=== PATIENT | male | born 1990 | race Caucasian/White ===

== ENCOUNTER 2018-03-15 11:57 | Emergency (ER) | payer SELFPAY ==
[2018-03-15] MEDS: DIPHTH/TET/ACEL PERTUSS (ADULT) 0.5 ML VIAL IM* (12:45)
[2018-03-15] MEDS: LIDOCAINE 1% (MDV) 20 ML INJ SC (12:57)
[2018-03-15] MEDS: CEFAZOLIN 1 GM INJ IM (13:09)
== END 2018-03-15 14:55 | disposition home or self-care (01) ==
LOC: FTE 11:57
DX: S61.216A Laceration without foreign body of right little finger without damage to nail, initial encounter (principal); W29.0XXA Contact with powered kitchen appliance, initial encounter; Y92.89 Other specified places as the place of occurrence of the external cause; Z23 Encounter for immunization
CPT/HCPCS: 12002; 73140; 90471; 90715; 96372; 99284-25

== ENCOUNTER → 2018-04-07 | Day surgery (SDC) | payer OTHER ==
[~2018-04-07] MED LIST: ALBUTEROL 0.083% (NEB) 2.5 MG/3 ML AMP HHN; CEFAZOLIN 1 GM INJ; DEXAMETHASONE 4 MG/ML 1 ML INJ; DIPHENHYDRAMINE 50 MG INJ IV; EPHEDrine SULFATE 50 MG/5 ML SYG IV; FENTAnyl 50 MCG/ML VIAL IV; HYDROCODONE/APAP (5/325) TAB PO; HYDROmorphONE 1 MG/5 ML IV SYRINGE IV; IBUPROFEN 600 MG TAB PO; KETOROLAC 30 MG INJ; KETOROLAC 30 MG INJ IV; LABETALOL HCL 20MG INJ; LABETALOL HCL 20MG INJ IV; LACTATED RINGER'S 1,000 ML IV; LIDOCAINE 2% (SDV) 5 ML INJ; MEPERIDINE 25 MG INJ IV; METOCLOPRAMIDE 10 MG INJ IV; NEOMYC/POLYMYX/BACIT 30 GM OINT; ONDANSETRON 4 MG INJ; ONDANSETRON 4 MG INJ IV; OXYCODONE/ACETAMINOPHEN (5/325) TAB PO; PROPOFOL 20 ML; ROCURONIUM 50 MG INJ; SUGAMMADEX SODIUM 200 MG/2 ML VIAL IV; hydrALAzine 20 MG INJ IV; morphine 2 MG INJ IV
[2018-04-07] MEDS: CEFAZOLIN 2 GM/50 ML (PMX) 50 ML IVPB (18:15)
[2018-04-07] MEDS: ROPIVACAINE 0.5 % 30 ML VIAL (18:32)
== END | disposition home or self-care (01) ==
LOC: SDS 15:18
DX: S66.126D Laceration of flexor muscle, fascia and tendon of right little finger at wrist and hand level, subsequent encounter (principal); S64.496D Injury of digital nerve of right little finger, subsequent encounter; X58.XXXD Exposure to other specified factors, subsequent encounter
CPT/HCPCS: 26356